=== PATIENT | female | born 1985 | race Two or more races ===

== ENCOUNTER 2019-03-25 06:24 | Day surgery (SDC) | payer OTHER ==
[~2019-03-25 06:24] MED LIST: Lactated Ringers 1,000 ML IV SCH
[2019-03-25] MEDS ORDERED: fentaNYL 100 MCG/2 ML SDV ONE (07:07)
[2019-03-25] MEDS ORDERED: Propofol 200 MG/20 ML SDV ONE ×2 (07:07→08:17)
[2019-03-25] MEDS ORDERED: Midazolam 1 MG/ML 2 ML SDV ONE (07:07)
[2019-03-25] MEDS ORDERED: Lidocaine 2% 5 ML SDV ONE (07:10)
[2019-03-25] MEDS ORDERED: Bupivacaine 0.5% 10 ML SDV ONE (07:22)
--- NOTE | 2019-03-25 07:35 | PCM.PREANE ---
Preanesthetic Assessment - Anesthesia/Transfusion/Family Hx Anesthesia History: Prior Anesthesia Without Reaction Family History of Anesthesia Reaction: No Transfusion History: No Prior Transfusion(s) - Review of Systems General: No Symptoms Pulmonary: No Symptoms Cardiovascular: No Symptoms Gastrointestinal: No Symptoms Neurological: No Symptoms Other: Reports: None - Physical Assessment NPO Status Date: 03/24/19 Height: 5 ft 5 in Weight: 80.286 kg ASA Class: 1 Mental Status: Alert & Oriented x3 Airway Class: Mallampati = 2 Dentition: Reports: Normal Dentition ROM/Head Extension: Full Lungs: Clear to Auscultation, Normal Respiratory Effort Cardiovascular: Regular Rate, Regular Rhythm - Lab Values: Laboratory Last Values Urine HCG, Qual NEGATIVE (NEGATIVE) 03/25/19 06:39 - Allergies Allergies/Adverse Reactions: Allergies Allergy/AdvReac Type Severity Reaction Status Date / Time acetaminophen Allergy Severe Passed out Verified 03/25/19 06:56 ibuprofen Allergy Facial Verified 03/20/19 12:57 Swelling - Blood Blood Available: No - Anesthesia Plan Pre-Op Medication Ordered: None - Acknowledgements Anesthesia Type Planned: MAC Pt an Appropriate Candidate for the Planned Anesthesia: Yes Alternatives and Risks of Anesthesia Discussed w Pt/Guardian: Yes Pt/Guardian Understands and Agrees with Anesthesia Plan: Yes Additional Comments: note allergy to both ibuprofen and tylenol. Rxn to ibuprofin was facial swelling /?angioedema, has not been exposed to other NSAIDs Note: limited tunisian, acts as interpretor PreAnesthesia Questionnaire HEENT History: Reports: Other (See Below) Other HEENT History: uses reading glasses ACID REGENERATOR History: Reports: Musculoskeletal History: Reports: Neck Pain, Chronic Neurological History: Reports: Headaches, Chronic Dermatologic History: Reports: Eczema - Past Surgical History Female Surgical History: Reports: Section - SUBSTANCE USE Smoking Status *Q: Never Smoker Recreational Drug Use History: No - HOME MEDS Home Medications: Home Meds Triamcinolone Acetonide [Triamcinolone Acetonide 0.1% Crm] 1 dose TOP BID [History] - CURRENT (IN HOUSE) MEDS Current Meds: Current Medications Lactated Ringer's (Ringers, Lactated) 1,000 mls @ 125 mls/hr IV ASDIRECTED MICHELLE Discontinued Medications Bupivacaine HCl (Sensorcaine-Mpf 0.5%) Confirm Administered Dose 10 ml .ROUTE .STK-MED ONE Stop: 03/25/19 07:23 Fentanyl (Sublimaze) Confirm Administered Dose 100 mcg .ROUTE .STK-MED ONE Stop: 03/25/19 07:08 Lidocaine (Xylocaine-Mpf 2%) Confirm Administered Dose 5 ml .ROUTE .STK-MED ONE Stop: 03/25/19 07:11 Midazolam HCl (Versed 1 Mg/Ml) Confirm Administered Dose 2 mg .ROUTE .STK-MED ONE Stop: 03/25/19 07:08 Propofol (Diprivan 20 Ml) Confirm Administered Dose 200 mg .ROUTE .STK-MED ONE Stop: 03/25/19 07:08
[2019-03-25] MEDS ORDERED: Lidocaine 1% 20 ML MDV ONE (08:04)
[2019-03-25] MEDS ORDERED: Atropine 0.1 MG/ML 10 ML Syringe IVPUSH PRN ×2 (08:25)
[2019-03-25] MEDS ORDERED: 50% Dextrose in Water 50 ML Syringe IVPUSH PRN (08:25)
[2019-03-25] MEDS ORDERED: Naloxone 0.4 MG/ML Syringe IVPUSH PRN (08:25)
[2019-03-25] MEDS ORDERED: fentaNYL 100 MCG/2 ML SDV IVPUSH PRN (08:25)
[2019-03-25] MEDS ORDERED: Albuterol 0.083% 2.5 MG/3 ML Neb Soln NEB PRN (08:25)
[2019-03-25] MEDS ORDERED: EPINEPHrine 1:10,000 1 MG/10 ML Syringe IVPUSH PRN (08:25)
[2019-03-25] MEDS ORDERED: Ondansetron 4 MG/2 ML SDV ONE (08:27)
[2019-03-25] MEDS ORDERED: Lactated Ringers 1,000 ML IV SCH (08:45)
--- NOTE | 2019-03-25 08:46 | PCM.OPNOTE ---
- General Post-Op/Procedure Note Date of Surgery/Procedure: 03/25/19 Operative Procedure(s): Excision 2 cm left upper arm mass Pre Op Diagnosis: Enlarging left upper arm mass Post-Op Diagnosis: Same Anesthesia Technique: Local, MAC (ASA I) Primary Surgeon: Navin Yi Fluid Replacement, Intraop: 700 EBL in mLs: 5 Condition: Good Free Text/Narrative:: DICTATION [id number] CPT CODE 60446
--- NOTE | 2019-03-25 09:33 | PCM.POSTAN ---
POST ANESTHESIA ASSESSMENT - MENTAL STATUS Mental Status: Alert, Oriented - RESPIRATORY Respiratory Status: Respiratory Rate WNL, Airway Patent, O2 Saturation Stable - CARDIOVASCULAR CV Status: Pulse Rate WNL, Blood Pressure Stable - GASTROINTESTINAL GI Status: No Symptoms - POST OP HYDRATION Hydration Status: Adequate & Stable
--- NOTE | 2019-03-25 09:34 | PCM48HPAN ---
Post Anesthesia Note - EVALUATION WITHIN 48HRS OF ANESTHETIC Vital Signs in Normal Range: Yes Patient Participated in Evaluation: Yes Respiratory Function Stable: Yes Airway Patent: Yes Cardiovascular Function Stable: Yes Hydration Status Stable: Yes Pain Control Satisfactory: Yes Nausea and Vomiting Control Satisfactory: Yes Mental Status Recovered: Yes Resp Rate: 14
--- NOTE | 2019-03-26 09:04 | OR ---
SURGEON: Navin Yi M.D. DATE OF PROCEDURE: 03/25/2019 OPERATION PERFORMED: Excision of 2 cm left upper arm mass. ANESTHESIA: Local, MAC. ASA CLASSIFICATION: I. PREOPERATIVE DIAGNOSIS: Enlarging symptomatic left upper arm mass. POSTOPERATIVE DIAGNOSIS: 2 cm left upper arm mass, inclusion cyst. ESTIMATED BLOOD LOSS: 5 mL. INTRAOPERATIVE FLUID REPLACEMENT: 700 mL of crystalloid. DESCRIPTION OF PROCEDURE: The patient was taken to the operating room and placed on the operating table in the supine position. Time-out was called for appropriate identification of the patient and the procedure. Monitored anesthesia care was provided. The left upper extremity was prepped with Betadine solution. Sterile drapes were applied. Skin incision had previously been marked. The skin was now infiltrated with 5 mL of 1% Xylocaine and 5 mL of 0.5% Marcaine solution. The skin incision was made and deepened down to the mass. The cyst wall was very thin and was entered. The entire cyst wall was able to be removed. Bleeding sites were electrocoagulated. The wound was inspected for hemostasis. No bleeding was noted. The wound was irrigated with sterile saline solution. All fluid was aspirated. The incision was then closed in 2 layers, approximating the subcutaneous tissue with 3-0 Vicryl and skin with subcuticular 4-0 Monocryl. The incision was then Steri-Stripped and dressed with a sterile Tegaderm pad. Sponge, needle, and instrument counts were all correct. The patient tolerated the procedure well and was taken to the recovery room in stable condition. GUILLE / RAMIRO /[id number]
== END 2019-03-25 10:00 | disposition home or self-care (01) ==
LOC: MW.SDS 06:24 → EDBD 06:24 → MW.SDS 10:00
PROVIDERS: ATTEND Surgery
DX: L72.0 Epidermal cyst (principal); M54.2 Cervicalgia; G89.29 Other chronic pain; L30.9 Dermatitis, unspecified; Z88.6 Allergy status to analgesic agent; Z79.899 Other long term (current) drug therapy
CPT/HCPCS: 24075; 81025; 88304; J2001; J2250; J2405; J2704; J3010; J3490; J7120; 00400